=== PATIENT | male | born 1950 | race Caucasian/White ===

== ENCOUNTER 2018-10-28 20:28 | Emergency (ER) | payer OTHER ==
[2018-10-28] MEDS ORDERED: Diphtheria,Pertussis(Acell),Tetanus Vaccine 0.5 ML SDV inactive IM ONE (20:53)
[2018-10-28] MEDS ORDERED: Bacitracin Oint 1 GM U/D Packet TOP ONE (21:05)
--- NOTE | 2018-10-28 21:21 | EDM.PDOC ---
ED HPI GENERAL MEDICAL PROBLEM - General Chief Complaint: Laceration Stated Complaint: LACERATION Time Seen by Provider: 10/28/18 20:30 Source of Information: Reports: Patient History Limitations: Reports: No Limitations - History of Present Illness INITIAL COMMENTS - FREE TEXT/NARRATIVE: This patient presents to the ED for evaluation of a laceration. He states he slipped while entering a shower and his forearm landed on a metal edge. He denies other injuries or concerns. Onset: Today, Sudden Onset Date: 10/28/18 Onset Time: 19:00 Location: Reports: Upper Extremity, Right - Related Data Allergies Allergy/AdvReac Type Severity Reaction Status Date / Time naproxen [From Aleve] Allergy Cannot Verified 10/28/18 20:52 Remember tetracycline Allergy Cannot Verified 10/28/18 20:52 Remember ED ROS GENERAL - Review of Systems Review Of Systems: See Below Constitutional: Reports: No Symptoms HEENT: Reports: No Symptoms Respiratory: Reports: No Symptoms Cardiovascular: Reports: No Symptoms GI/Abdominal: Reports: No Symptoms Skin: Reports: Lesions, Other (laceration) ED EXAM, SKIN/RASH Exam: See Below Exam Limited By: No Limitations General Appearance: Alert, No Apparent Distress Eye Exam: Bilateral Eye: PERRL Ears: Normal External Exam Nose: Normal Inspection Head: Atraumatic, Normocephalic Neck: Normal Inspection, Non-Tender, Full Range of Motion Respiratory/Chest: No Respiratory Distress Extremities: Normal Inspection, Normal Range of Motion Neurological: Alert, Oriented Skin: Warm, Dry, Other (15 cm laceration to inner aspect right forearm; 1 cm flap laceration of palm over hypothenar emminence) ED SKIN PROCEDURES - Laceration/Wound Repair Right Lower Lateral Arm Appearance: Subcutaneous, Clean Distal NVT: Neuro & Vascular Intact, No Tendon Injury Anesthetic Type: Local Local Anesthesia - Lidocaine (Xylocaine): 1% Plain Local Anesthetic Volume: Other (10 mL) Skin Prep: Providone-Iodine (Betadine), Saline Saline Irrigation (cc's): 250 Exploration/Debridement/Repair: Wound Explored, Explored to Base, No Foreign Material Found Closed with: Sutures Lac/Wound length In cm: 15 Suture Size: 4-0 Suture Type: Nylon, Mattress, Other (8) Course - Orders/Labs/Meds Orders: Active Orders 24 hr Category Date Time Status Vaccines to be Administered [RC] PER UNIT ROUTINE Care 10/28/18 20:54 Active Meds: Medications Discontinued Medications Generic Name Dose Route Start Last Admin Trade Name Stan PRN Reason Stop Dose Admin Diphtheria/Tetanus/Acell Pertussis 0.5 ml 10/28/18 20:53 Boostrix IM 10/28/18 20:54 .ONCE ONE Lidocaine HCl 10 ml 10/28/18 20:40 Xylocaine-Mpf 1% INJECT 10/28/18 20:41 ONETIME ONE - Re-Assessments/Exams Free Text/Narrative Re-Assessment/Exam: 10/28/18 21:27 This patient presents with a laceration to his right forearm. The wound was carefully evaluated and explored. The laceration was closed with sutures as noted above. There is no evidence of muscular, tendon, or bony damage with this laceration. No signs of foreign body. Possible complications (infection, scarring) were reviewed with the patient. Follow up with primary care will be indicated in 7-10 days for suture removal as noted in the discharge section. Departure - Departure Time of Disposition: 21:30 Disposition: Admitted As Inpatient 67 Condition: Good Clinical Impression: Laceration - Discharge Information Instructions: Laceration Care, Adult, [id number], Stitches, Kacy, or Adhesive Wound Closure, [id number] Referrals: PCP,None [Primary Care Provider] - Forms: ED Department Discharge Additional Instructions: Keep dressing on until Wednesday, then you may remove. Cover with dressing during the day. May leave open to air after that. Remove stitches in 7-10 days. Need to be removed by 11/08/18. You received Tetanus today. - My Orders Last 24 Hours: My Active Orders 10/28/18 20:54 Vaccines to be Administered [RC] PER UNIT ROUTINE - Assessment/Plan Last 24 Hours: My Active Orders 10/28/18 20:54 Vaccines to be Administered [RC] PER UNIT ROUTINE
== END 2018-10-28 21:22 | disposition home or self-care (01) ==
LOC: LB.ED 20:28
DX: S51.811A Laceration without foreign body of right forearm, initial encounter (principal); S61.411A Laceration without foreign body of right hand, initial encounter; Z88.1 Allergy status to other antibiotic agents; Z88.8 Allergy status to other drugs, medicaments and biological substances; W18.49XA Other slipping, tripping and stumbling without falling, initial encounter; W22.8XXA Striking against or struck by other objects, initial encounter
CPT/HCPCS: 12005; 90471; 90715; 99282; J2001